=== PATIENT | male | born 1985 | race Caucasian/White ===

== ENCOUNTER 2018-06-12 23:42 | Emergency (ER) | payer OTHER ==
[2018-06-13] MEDS ORDERED: IBUPROFEN 800 MG TABLET PO STA (01:17)
[2018-06-13] MEDS ORDERED: ACETAMINOPHEN 325 MG TABLET PO STA (01:17)
[2018-06-13] MEDS ORDERED: BENZONATATE 100 MG CAPSULE PO STA (01:17)
--- NOTE | 2018-06-13 01:19 | ED Physician Documentation ---
History of Present Illness - Stated complaint Stated Complaint: FEVER - Chief complaint Chief Complaint: Heent - Additonal information Additional information: hx from pt 33 male to ED with fever COCHRAN mylagias sore throat cough some nausea Review of Systems Constitutional: reports: Fever, Chills, Myalgias Ears: denies: Ear pain Throat: reports: Sore throat Respiratory: reports: Cough. denies: Dyspnea GI: reports: Nausea. denies: Abdominal Pain, Vomiting Endocrine: denies: Easy bruising / bleeding Immunocompromised: denies: Immunocompromised PD PAST MEDICAL HISTORY - Present Medications Home Medications: Ambulatory Orders Medication Instructions Recorded Confirmed Benzonatate [Tessalon Perle] 100 mg PO TID PRN #20 capsule 06/13/18 Dextromethorphan/Benzocaine 1 each PO Q4H PRN #20 lozenge 06/13/18 [Cepacol Sorethroat-Cough Adis] Fluticasone [Flonase] 1 sprays ALMITA BID #1 bottle 06/13/18 guaiFENesin/DEXTROMETHORPHAN 10 ml PO Q6H PRN #120 ml 06/13/18 [Robitussin Dm] - Allergies Allergies/Adverse Reactions: Allergies Allergy/AdvReac Type Severity Reaction Status Date / Time Penicillins Allergy Hives Verified 06/12/18 23:49 PD ED PE NORMAL - Vitals Vital signs reviewed: Yes (tachy) - General General: Alert and oriented X 3 - Neck Neck: Supple, no meningeal sign - Cardiac Cardiac: RRR - Respiratory Respiratory: No respiratory distress, Clear bilaterally - Abdomen Abdomen: Soft, Non tender - Derm Derm: Normal color - Neuro Neuro: Alert and oriented X 3 Results - Vitals Vitals: Vital Signs - 24 hr 06/12/18 06/13/18 23:46 01:39 Temperature 37.2 C 37.3 C Heart Rate 121 H 110 H Respiratory 17 Rate Blood Pressure 136/93 H 139/87 H O2 Saturation 98 97 Oxygen O2 Source Room air - Labs Labs: Laboratory Tests 06/12/18 06/13/18 23:50 00:45 Influenza A (Rapid) Negative Influenza B (Rapid) Negative Group A Strep Rapid Negative PD MEDICAL DECISION MAKING - ED course ED course: 33 male classic influenza type sx but flu swab neg lungs sound clear strep neg too CXR neg R TM is red and retracted but he does not have ear pain despite neg flu swab pt really has classic s/sx of the fl and it is prevalent in out area now will tx for flu having ruled out other causes his HR is coming down with PO fluids and meds he is not high risk and is unlikely to benefit from tamiflu which also has many side effects feels most prudent course of tx is symptomatic meds and a note for work Departure - Departure Disposition: 01 Home, Self Care Clinical Impression: Influenza Condition: Good Instructions: ED Flu Follow-Up: ALMITA Nelly Pierce [Provider Group] Prescriptions: Benzonatate [Tessalon Perle] 100 mg PO TID PRN #20 capsule PRN Reason: Cough Dextromethorphan/Benzocaine [Cepacol Sorethroat-Cough Adis] 1 each PO Q4H PRN #20 lozenge PRN Reason: sore throat Fluticasone [Flonase] 1 sprays ALMITA BID #1 bottle guaiFENesin/DEXTROMETHORPHAN [Robitussin Dm] 10 ml PO Q6H PRN #120 ml PRN Reason: Cough Comments: Your xray did not show pneumonia. Your throat is red but the rapid strep was negative - an official throat culture will also be sent and we will call you if it is positive and antibiotics are needed. Your ear drum on the right was red but not infected - recommend a decongestant. I suspect you have influenza. Thankfully you are young and healthy and will likely recover quickly. The tamiflu medication is unlikely to help you and has many side effects - since you are low risk for complications of the flu I do not recommend that medication. I have prescribed medications to ease your symptoms Forms: Activity restrictions
[2018-06-13] MEDS ORDERED: ONDANSETRON ODT 4 MG TABLET TL STA (01:22)
[2018-06-13 01:41] VITALS: BP 139/87
--- NOTE | 2018-06-13 01:41 | XRAY Report ---
Reason: fever cough Procedure Date: 06/13/2018 Accession Number: [id number] / [id number] Procedure: XR - Chest 2 View X-Ray CPT Code: 71344 FULL RESULT: EXAM: CHEST RADIOGRAPHY EXAM DATE: 06/13/2018 01:34 AM. CLINICAL HISTORY: Fever cough. COMPARISON: None. TECHNIQUE: 2 views. FINDINGS: Lungs/Pleura: No alveolar consolidation or pleural effusion seen. No pneumothorax. Mediastinum: Heart and mediastinal contours are unremarkable. Other: None. IMPRESSION: 1. No acute abnormality seen in the chest. RADIA
== END 2018-06-13 02:12 | disposition home or self-care (01) ==
LOC: ED 23:42 → EDBD 23:42 → ED 06-13 02:12
DX: J11.1 Influenza due to unidentified influenza virus with other respiratory manifestations (principal)
CPT/HCPCS: 71046; 87070; 87275; 87276; 87430; 99283; A9270; Q0162

== ENCOUNTER 2019-01-08 16:15 | Emergency (ER) | payer OTHER ==
[2019-01-08 16:24] VITALS: BP 155/93
--- NOTE | 2019-01-08 16:34 | ED Physician Documentation ---
PD HPI MHE - Stated complaint Stated Complaint: MHE - Chief complaint Chief Complaint: MHE - History obtained from History obtained from: Patient - History of Present Illness Primary symptom: Other (patient made a statement to his fiance over the phone that he "doesn't even want to be here any more") Timing - onset: Today Contributing factors: Sig other, Work. No: Substance abuse - ETOH, Substance abuse - drugs, Off meds, Out of meds Similar symptoms before: Has not had sx before Recently seen: Not recently seen - Treatment prior to arrival Treatment prior to arrival: none - Additional information Additional information: Patient states he made a statement that he doesn't want to be here anymore when he was talking to his fiance on the phone. She called his commander who had him picked up by EMS. Pt does not want to be here. Denies suicidal thoughts or plan. Denies access to weapons at home or guns. Denies drug or alcohol use. States he has been dealing with some mild depression and plans to call [facility] for self referral to a therapist this week. Review of Systems Ten Systems: 10 systems reviewed and negative Cardiac: denies: Chest pain / pressure Respiratory: denies: Dyspnea GI: denies: Abdominal Pain Skin: reports: Reviewed and negative Musculoskeletal: reports: Reviewed and negative Neurologic: reports: Reviewed and negative Psychiatric: reports: Depressed. denies: Suicidal, Homicidal, Hallucinations, Delusions, Anxiety, Insomnia PD PAST MEDICAL HISTORY - Past Medical History Past Medical History: No - Past Surgical History Past Surgical History: Yes HEENT: Myringotomy (tubes) - Present Medications Home Medications: Ambulatory Orders Medication Instructions Recorded Confirmed No Known Home Medications 01/08/19 01/08/19 - Allergies Allergies/Adverse Reactions: Allergies Allergy/AdvReac Type Severity Reaction Status Date / Time Penicillins Allergy Hives Verified 01/09/19 08:14 - Social History Does the pt smoke?: Yes Smoking Status: Current every day smoker Does the pt drink ETOH?: Yes Does the pt have substance abuse?: No - Immunizations Immunizations are current?: Yes - POLST Patient has POLST: No PD ED PE NORMAL - Vitals Vital signs reviewed: Yes - General General: Alert and oriented X 3, No acute distress, Well developed/nourished - HEENT HEENT: Atraumatic, PERRL, Pharynx benign - Neck Neck: Supple, no meningeal sign, No JVD - Cardiac Cardiac: RRR - Respiratory Respiratory: No respiratory distress - Abdomen Abdomen: Non tender, Non distended - Male Male : Deferred - Rectal Rectal: Deferred - Derm Derm: Normal color, Warm and dry, No rash - Extremities Extremities: No deformity - Neuro Neuro: Alert and oriented X 3 Eye Opening: Spontaneous Motor: Obeys Commands Verbal: Oriented GCS Score: 15 - Psych Psych: Normal mood, Normal affect PD ED PE EXPANDED - Psych Psych: Normal. No: Intoxicated / AOB, Depressed, Suicidal, Tearful, Withdrawn, Poor eye contact, Non verbal, Anxious, Agitated, Combative, Manic, Pressured speech, Auditory hallucinations, Visual hallucinations, Delusions Results - Vitals Vitals: Vital Signs - 24 hr 01/08/19 16:20 Temperature 37 C Heart Rate 95 Respiratory 20 Rate Blood Pressure 155/93 H O2 Saturation 97 Oxygen O2 Source Room air PD MEDICAL DECISION MAKING - ED course Complexity details: considered differential, d/w patient ED course: ddx - suicidal ideation, suicidal statement, depression, suicidal attempt, stress reaction, anxiety 33 y/o M made a statement that he doesn't want to be here anymore to his fiance over the phone. He denies any plan or true suicidal intent. He has no prior hx of SI or hospitalizations. He is not on meds. Denies drug ingestion or drug abuse. He is calm, collected, reasonable and I feel he is not acutely suicidal and is stable for discharge with plan for outpt f/u with a therapist. Pt to call [facility] for self referral f/u today. Departure - Departure Disposition: 01 Home, Self Care Clinical Impression: Depression Qualifiers: Depression Type: unspecified Qualified Code(s): F32.9 - Major depressive disorder, single episode, unspecified Condition: Stable Record reviewed to determine appropriate education?: Yes Instructions: ED Depression Follow-Up: your, doctor [Other] Comments: Please call 911 or return to the ED if you have any thoughts of harming yourself or others. Contact [email or web address] to obtain an appointment with a local therapist for an outpatient mental health evaluation. Discharge Date/Time: 01/08/19 16:45
== END 2019-01-08 16:45 | disposition home or self-care (01) ==
LOC: ED 16:15
DX: F32.9 Major depressive disorder, single episode, unspecified (principal); F17.200 Nicotine dependence, unspecified, uncomplicated
CPT/HCPCS: 99282; 99283